=== PATIENT | female | born 1985 | race Two or more races ===

== ENCOUNTER 2019-11-07 18:10 | Emergency (ER) | payer SELFPAY ==
[~2019-11-07] VITALS: Ht 152.4 cm; Wt 53.0 kg
[2019-11-07] MEDS ORDERED: TETANUS, DIPHTHERIA, PERTUSSIS VAC/PF 0.5ML (>7YR OLD) IM ONE (22:30)
[2019-11-07] MEDS ORDERED: LIDOCAINE HCL/PF 1% 10 MG/ML 5ML VIAL IJ ONE (22:30)
[2019-11-07] MEDS ORDERED: BACITRACIN ZINC OINT UDPKT TOP ONE (22:30)
[2019-11-07 23:42] VITALS: BP 123/68
== END 2019-11-07 23:40 | disposition home or self-care (01) ==
LOC: ER 18:10
DX: S01.81XA Laceration without foreign body of other part of head, initial encounter (principal); S09.8XXA Other specified injuries of head, initial encounter; W20.8XXA Other cause of strike by thrown, projected or falling object, initial encounter; Y93.89 Activity, other specified; Y92.9 Unspecified place or not applicable
CPT/HCPCS: 12013; 90471; 90715; 99283; J3490; Z7610

== ENCOUNTER 2020-01-08 23:11 | Emergency (ER) | payer SELFPAY ==
[~2020-01-08] VITALS: Ht 157.5 cm; Wt 52.0 kg
[2020-01-09 04:09] VITALS: BP 117/74
== END 2020-01-09 04:10 | disposition home or self-care (01) ==
LOC: ER 23:11
DX: J06.9 Acute upper respiratory infection, unspecified (principal)
CPT/HCPCS: 87804; 99283